=== PATIENT | female | born 1975 | race Asian ===

== ENCOUNTER 2017-06-11 07:32 | Outpatient (CLI) | payer OTHER | END 2017-06-11 21:21 | disposition home or self-care (01) | LOC: MLB 07:32 | PROVIDERS: ATTEND Obstetrics & Gynecology | DX: N83.209 Unspecified ovarian cyst, unspecified side (principal) | CPT/HCPCS: 36415; 86304 ==

== ENCOUNTER 2018-05-02 09:38 | Outpatient (CLI) | payer OTHER ==
[2018-05-02 10:27] LABS: BASOPHILS # (AUTO) 0.1 K/uL (0.00-0.22); BASOPHILS % (AUTO) 0.8 % (0.0-2.0); EOSINOPHILS # (AUTO) 0.1 K/uL (0-0.4); EOSINOPHILS % (AUTO) 1.8 % (0.0-4.0); HEMOGLOBIN 12.8 g/dL (12.0-16.0); LYMPHOCYTES # (AUTO) 1.8 K/uL (2.5-16.5); LYMPHOCYTES % (AUTO) 24.6 % (20.5-51.1); MEAN CORPUSCULAR HEMOGLOBIN 25 pg (27-31); MEAN CORPUSCULAR HGB CONC 32 g/dL (33-37); MEAN CORPUSCULAR VOLUME 79.5 fL (80-94); MONOCYTES # (AUTO) 0.3 K/uL (0.8-1.0); MONOCYTES % (AUTO) 3.7 % (1.7-9.3); NEUTROPHILS % (AUTO) 69.1 % (42.2-75.2); PLATELET COUNT (AUTO) 357 K/uL (140-450); RED BLOOD CELL COUNT(AUTO) 5.03 MIL/uL (4.20-5.40); RED CELL DISTRIBUTION WIDTH 17.7 % (11.6-13.7); WHITE BLOOD COUNT (AUTO) 7.2 K/uL (4.8-10.8)
[2018-05-02 11:13] LABS: ALBUMIN 3.6 g/dL (3.4-5.0); ANION GAP 17.7 (8-16); CARBON DIOXIDE 20.5 mmol/L (21-32); CREATININE 0.9 mg/dL (0.6-1.3); POTASSIUM 4.2 mmol/L (3.5-5.1); TOTAL BILIRUBIN 0.6 mg/dL (0.0-1.0)
[2018-05-03 08:26] LABS: PROLACTIN 8.3 ng/mL (4.8-23.3)
== END 2018-05-02 20:39 | disposition home or self-care (01) ==
LOC: MLB 09:38
PROVIDERS: ATTEND Obstetrics & Gynecology
DX: N83.201 Unspecified ovarian cyst, right side (principal); I25.10 Atherosclerotic heart disease of native coronary artery without angina pectoris
CPT/HCPCS: 36415; 76830; 80053; 84146; 85025; 86304; Q0092

== ENCOUNTER 2018-06-14 14:30 | Outpatient (CLI) | payer OTHER | END 2018-06-14 20:27 | disposition home or self-care (01) | LOC: MUS 14:30 | PROVIDERS: ATTEND Obstetrics & Gynecology | DX: D25.9 Leiomyoma of uterus, unspecified (principal); N83.202 Unspecified ovarian cyst, left side | CPT/HCPCS: 76830 ==

== ENCOUNTER 2018-06-17 06:14 | Day surgery (SDC) | payer OTHER ==
[~2018-06-17] VITALS: Ht 162.6 cm; Wt 104.3 kg
[2018-06-17 06:58] LABS: BASOPHILS # (AUTO) 0.1 K/uL (0.00-0.22); BASOPHILS % (AUTO) 1.3 % (0.0-2.0); EOSINOPHILS # (AUTO) 0.1 K/uL (0-0.4); EOSINOPHILS % (AUTO) 1.2 % (0.0-4.0); HEMATOCRIT 22.2 % (36-48); LYMPHOCYTES # (AUTO) 2.4 K/uL (2.5-16.5); LYMPHOCYTES % (AUTO) 23.1 % (20.5-51.1); MEAN CORPUSCULAR HEMOGLOBIN 22 pg (27-31); MEAN CORPUSCULAR HGB CONC 31 g/dL (33-37); MEAN CORPUSCULAR VOLUME 72.7 fL (80-94); MONOCYTES # (AUTO) 0.5 K/uL (0.8-1.0); MONOCYTES % (AUTO) 4.9 % (1.7-9.3); NEUTROPHILS # (AUTO) 7.2 K/uL (1.8-7.7); NEUTROPHILS % (AUTO) 69.5 % (42.2-75.2); PLATELET COUNT (AUTO) 431 K/uL (140-450); RED BLOOD CELL COUNT(AUTO) 3.05 MIL/uL (4.20-5.40); RED CELL DISTRIBUTION WIDTH 21.1 % (11.6-13.7); WHITE BLOOD COUNT (AUTO) 10.4 K/uL (4.8-10.8)
[2018-06-17 07:09] LABS: HEMOGLOBIN 6.8 g/dL (12.0-16.0)
[2018-06-17 07:14] LABS: ANION GAP 14.3 (8-16); CARBON DIOXIDE 23.4 mmol/L (21-32); POTASSIUM 3.7 mmol/L (3.5-5.1)
[2018-06-17 07:19] LABS: PROTHROMBIN TIME 9.3 secs (10.8-13.4)
[2018-06-17] MEDS ORDERED: BUPIVACAINE-MPF 0.5% 30 ML VIAL INJ ONE (07:30)
[2018-06-17] MEDS ORDERED: DESFLURANE 240 ML BTL INH ONE (07:56)
[2018-06-17] MEDS ORDERED: SUCCINYLCHOLINE CHLORIDE 200 MG/10 ML VIAL IV ONE (07:56)
[2018-06-17] MEDS ORDERED: ROCURONIUM 50 MG/5 ML VIAL IV ONE (07:56)
[2018-06-17] MEDS ORDERED: ONDANSETRON 4 MG/2 ML VIAL IVP ONE (07:56)
[2018-06-17] MEDS ORDERED: PROPOFOL 200 MG/20 ML VIAL IV ONE (07:56)
[2018-06-17] MEDS ORDERED: DEXAMETHASONE 4 MG/ML VIAL IVP ONE (07:56)
[2018-06-17] MEDS ORDERED: fentaNYL 0.05 MG/ML VIAL ONE (07:58)
[2018-06-17 08:02] LABS: TOTAL BILIRUBIN 0.4 mg/dL (0.0-1.0)
[2018-06-17 08:03] LABS: ALBUMIN 3.3 g/dL (3.4-5.0)
[2018-06-17] MEDS ORDERED: HYDROmorphone PFS 2 MG/ML SYR ONE (08:33)
[2018-06-17] MEDS ORDERED: ONDANSETRON 4 MG/2 ML VIAL IVP SCH (09:05)
[2018-06-17] MEDS ORDERED: IBUPROFEN 800 MG TAB PO PRN (09:30)
[2018-06-17] MEDS ORDERED: HYDROmorphone 1 MG/ML AMP IVP PRN (09:30)
[2018-06-17] MEDS ORDERED: ACETAMINOPHEN/CODEINE 300/30MG 1 TAB PO PRN (09:30)
[2018-06-17] MEDS ORDERED: MORPHINE SULFATE 4 MG/ML SYR IM/IVP PRN (09:30)
[2018-06-17] MEDS ORDERED: ONDANSETRON 4 MG/2 ML VIAL IVP PRN (13:00)
[2018-06-17 13:28] LABS: HEMATOCRIT 26.2 % (36-48); HEMOGLOBIN 8.2 g/dL (12.0-16.0); LYMPHOCYTES # (AUTO) 0.7 K/uL (2.5-16.5); LYMPHOCYTES % (AUTO) 4.9 % (20.5-51.1); MEAN CORPUSCULAR HEMOGLOBIN 24 pg (27-31); MEAN CORPUSCULAR HGB CONC 31 g/dL (33-37); MEAN CORPUSCULAR VOLUME 75.4 fL (80-94); MONOCYTES # (AUTO) 0.1 K/uL (0.8-1.0); MONOCYTES % (AUTO) 1.1 % (1.7-9.3); NEUTROPHILS # (AUTO) 12.6 K/uL (1.8-7.7); PLATELET COUNT (AUTO) 328 K/uL (140-450); RED BLOOD CELL COUNT(AUTO) 3.48 MIL/uL (4.20-5.40); RED CELL DISTRIBUTION WIDTH 22.2 % (11.6-13.7); WHITE BLOOD COUNT (AUTO) 13.4 K/uL (4.8-10.8)
== END 2018-06-17 14:50 | disposition home or self-care (01) ==
LOC: MDS 06:14 → MMU 06:35 → MDS 14:50
PROVIDERS: ATTEND Obstetrics & Gynecology
DX: N83.202 Unspecified ovarian cyst, left side (principal); N92.1 Excessive and frequent menstruation with irregular cycle; D50.0 Iron deficiency anemia secondary to blood loss (chronic); E66.01 Morbid (severe) obesity due to excess calories; Z68.41 Body mass index [BMI] 40.0-44.9, adult; Z90.49 Acquired absence of other specified parts of digestive tract
CPT/HCPCS: 36415; 36430; 58558; 58662; 80053; 82374; 84703; 85025; 85610; 85730; 86886; 86900; 86901; 86920; 88305; J0330; J1100; J1170; J2405; J2704; J3010; J3490; P9016

== ENCOUNTER 2018-07-02 15:01 | Outpatient (CLI) | payer OTHER ==
[2018-07-03 08:20] LABS: FOLLICLE STIMULATING HORMONE 3.9 mIU/mL (.); LUTEINIZING HORMONE 10.5 mIU/mL (.); PROLACTIN 11.8 ng/mL (4.8-23.3)
== END 2018-07-02 20:59 | disposition home or self-care (01) ==
LOC: MLB 15:01
PROVIDERS: ATTEND Obstetrics & Gynecology
DX: N93.0 Postcoital and contact bleeding (principal); N39.8 Other specified disorders of urinary system
CPT/HCPCS: 36415; 83001; 83002; 83516; 84146; 84443

== ENCOUNTER 2019-01-06 12:50 | Inpatient (IN) | payer OTHER ==
[~2019-01-06] VITALS: Ht 162.6 cm; Wt 104.3 kg
[2019-01-06 13:25] VITALS: BP 125/81
--- NOTE | 2019-01-06 13:30 | NUR ---
PATIENT AMBULATED TO ER BED 5.
--- NOTE | 2019-01-06 13:35 | NUR ---
PT IS A 43 Y/O FEMALE WHO PRESENTS TO THE ED C/O DIARRHEA AND EPIGASTRIC PAIN. PT STATES THAT IT STARTED YESTERDAY. PT REPORTS 10/10 ACHING EPIGASTRIC PAIN THAT DOES NOT RADIATE. PT DENIES CP, SOB, REPORTS NAUSEA/DIARRHEA, BS PRESENT IN ALL 4 QUADRANTS. PT AWAKE AND ALERT, RR EVEN/UNLABORED. PT REPOSITIONED FOR COMFORT, BED IN LOWEST POSITION. ER MD DR. VALDES NOTIFIED. WILL CONTINUE TO MONITOR. HX; DENIES RX; DENIES
--- NOTE | 2019-01-06 13:40 | NUR ---
PATIENT REPORT GIVEN TO KRISTOFER RN, TRANSFER OF CARE AT THIS TIME.
[2019-01-06] MEDS ORDERED: NACL 0.9% 1,000 ML IV SCH (14:26)
[2019-01-06] MEDS ORDERED: NACL 0.9% 1,000 ML IV ONE (14:26)
[2019-01-06] MEDS ORDERED: metroNIDAZOLE 500 MG/NS PREMIX 100 ML IV ONE (14:30)
[2019-01-06] MEDS ORDERED: KETOROLAC 30 MG/ML VIAL IVP ONE (14:30)
[2019-01-06] MEDS ORDERED: ONDANSETRON 4 MG/2 ML VIAL IVP ONE (14:30)
[2019-01-06] MEDS ORDERED: GLYCOPYRROLATE 0.2 MG/ML VIAL IV ONE (14:30)
[2019-01-06 14:55] LABS: BASOPHILS % (AUTO) 0.3 % (0.0-2.0); EOSINOPHILS % (AUTO) 0.5 % (0.0-4.0); HEMOGLOBIN 11.8 g/dL (12.0-16.0); LYMPHOCYTES # (AUTO) 0.9 K/uL (2.5-16.5); LYMPHOCYTES % (AUTO) 10.8 % (20.5-51.1); MEAN CORPUSCULAR HEMOGLOBIN 24 pg (27-31); MEAN CORPUSCULAR HGB CONC 32 g/dL (33-37); MEAN CORPUSCULAR VOLUME 74.1 fL (80-94); MONOCYTES # (AUTO) 0.6 K/uL (0.8-1.0); MONOCYTES % (AUTO) 6.4 % (1.7-9.3); NEUTROPHILS # (AUTO) 7.1 K/uL (1.8-7.7); PLATELET COUNT (AUTO) 276 K/uL (140-450); RED BLOOD CELL COUNT(AUTO) 4.99 MIL/uL (4.20-5.40); RED CELL DISTRIBUTION WIDTH 17.8 % (11.6-13.7); WHITE BLOOD COUNT (AUTO) 8.6 K/uL (4.8-10.8)
[2019-01-06 15:11] LABS: ACETONE, SERUM NEGATIVE (NEGATIVE)
[2019-01-06 15:14] LABS: ANION GAP 13.7 (8-16); CARBON DIOXIDE 22.9 mmol/L (21-32); CHLORIDE 103 mmol/L (98-107); CREATININE 0.9 mg/dL (0.6-1.3); GFR ARICAN-AMERICAN 89 mL/min (>90); GLUCOSE 106 mg/dL (74-106); POTASSIUM 3.6 mmol/L (3.5-5.1); SODIUM SERUM 136 mmol/L (136-145); UREA NITROGEN, BLOOD 15 mg/dL (7-18)
[2019-01-06 15:21] LABS: ALBUMIN 3.6 g/dL (3.4-5.0); AMYLASE 37 U/L (25-115); ASPARTATE AMINOTRANSFERASE 28 U/L (15-37); LIPASE 119 U/L (73-393); MAGNESIUM 1.9 mg/dL (1.8-2.4); TOTAL BILIRUBIN 0.4 mg/dL (0.0-1.0)
[2019-01-06] MEDS: LEVOFLOXACIN 500 MG/D5W PREMIX 100 ML IV ONE ×2 (16:03→16:14)
--- NOTE | 2019-01-06 16:33 | NUR ---
US AT BEDSIDE.
[2019-01-06] MEDS ORDERED: KETOROLAC 15 MG/ML VIAL IVP PRN (17:40)
[2019-01-06] MEDS ORDERED: ONDANSETRON 4 MG/2 ML VIAL IM/IVP PRN (17:40)
[2019-01-06] MEDS ORDERED: ACETAMINOPHEN 325 MG TAB PO PRN (17:40)
--- NOTE | 2019-01-06 17:54 | NUR ---
X RAY AT BEDSIDE
[2019-01-06 18:11] LABS: APPEARANCE,URINE CLEAR (CLEAR); BILIRUBIN,URINE NEGATIVE (NEGATIVE); BLOOD, URINE NEGATIVE (NEGATIVE); COLOR,URINE YELLOW (YELLOW); LEUKOCYTE ESTERASE ,URINE 2+ (NEGATIVE); NITRITE, URINE POSITIVE (NEGATIVE); UGLUCOSE NEGATIVE (NEGATIVE)
--- NOTE | 2019-01-06 18:22 | NUR ---
Patient will be admitted to care of DR BOYER. Admited to MS. Will go to room 115. Belongings list completed. Report to JONG DOMÍNGUEZ.
[2019-01-06 18:27] LABS: RBC,URINE 0-5 /HPF (0-5)
[2019-01-06 18:48] LABS: PROTHROMBIN TIME 9.4 secs (10.8-13.4)
[2019-01-06 18:58] LABS: PHOSPHORUS 3.1 mg/dL (2.5-4.9); THYROID STIMULATING HORMONE 0.77 uIU/mL (0.34-3.74)
--- NOTE | 2019-01-06 19:15 | NUR ---
ENDORSED PT TO PM NURSE AT BED-SIDE. PT IN STABLE CONDITION
--- NOTE | 2019-01-06 19:16 | NUR ---
RECEIVED BEDSIDE REPORT FROM DAY SHIFT NURSE SITAL RN, PT IN STABLE CONDITION, NO DISTRESS NOTED, IV TO L AC 20G INTACT, PATENT, SL, PT ON ROOM AIR, NO SOB, PT STATED HAVING TOLERABLE PAIN AT THIS MOMENT 12/15, INITIAL ASSESSMENT DONE, ALL SAFETY PRECAUTION MET, CALL LIGHT WITHIN REACH, WILL CONTINUE TO MONITOR.
[2019-01-06 19:30] VITALS: BP 120/60
[2019-01-06] MEDS: NACL 0.9% 1,000 ML IV SCH (20:45)
--- NOTE | 2019-01-06 20:45 | NUR ---
IVF STARTED ON PT, PT TOLERATED WELL, CALL LIGHT WITHIN REACH, WILL CONTINUE TO MONITOR.
[2019-01-07] VITALS: BP 112/55
[2019-01-07] MEDS ORDERED: DEXT 5% / NACL 0.45% 1,000 ML IV SCH
--- NOTE | 2019-01-07 00:20 | NUR ---
CHECKED ON PT, PT RESTING ON BED, NO DISTRESS NOTED, V/S TAKEN, WNL, CALL LIGHT WITHIN REACH, WILL CONTINUE TO MONITOR.
--- NOTE | 2019-01-07 01:56 | NUR ---
PT C/O PAIN, PAIN MEDICATION ADMINISTERED, PT TOLERATED WELL, NO DISTRESS NOTED, CALL LIGHT WITHIN REACH, WILL CONTINUE TO MONITOR.
[2019-01-07] MEDS: metroNIDAZOLE 500 MG/NS PREMIX 100 ML IV SCH ×2 (04:23→14:44)
--- NOTE | 2019-01-07 04:33 | NUR ---
DUE MEDICATION ADMINISTERED, PT TOLERATED WELL, NO DISTRESS NOTED, CALL LIGHT WITHIN REACH, WILL CONTINUE TO MONITOR.
[2019-01-07] MEDS ORDERED: KETOROLAC 15 MG/ML VIAL IVP SCH (06:30)
[2019-01-07] MEDS: NACL 0.9% 1,000 ML IV SCH ×2 (06:55→15:22)
[2019-01-07 07:21] LABS: BASOPHILS % (AUTO) 0.4 % (0.0-2.0); EOSINOPHILS # (AUTO) 0.1 K/uL (0-0.4); EOSINOPHILS % (AUTO) 2.7 % (0.0-4.0); HEMATOCRIT 33.4 % (36-48); HEMOGLOBIN 10.5 g/dL (12.0-16.0); LYMPHOCYTES # (AUTO) 1.3 K/uL (2.5-16.5); LYMPHOCYTES % (AUTO) 28.6 % (20.5-51.1); MEAN CORPUSCULAR HEMOGLOBIN 24 pg (27-31); MEAN CORPUSCULAR HGB CONC 31 g/dL (33-37); MEAN CORPUSCULAR VOLUME 75.9 fL (80-94); MONOCYTES # (AUTO) 0.4 K/uL (0.8-1.0); MONOCYTES % (AUTO) 7.7 % (1.7-9.3); NEUTROPHILS # (AUTO) 2.8 K/uL (1.8-7.7); NEUTROPHILS % (AUTO) 60.6 % (42.2-75.2); PLATELET COUNT (AUTO) 259 K/uL (140-450); RED CELL DISTRIBUTION WIDTH 18.3 % (11.6-13.7); WHITE BLOOD COUNT (AUTO) 4.7 K/uL (4.8-10.8)
--- NOTE | 2019-01-07 07:21 | NUR ---
ENDORSED PT TO DAY SHIFT NURSE LEIOT RN, FOR CONTINUOUS OF CARE. PT STABLE, NO DISTRESS NOTED, CALL LIGHT WITHIN REACH.
--- NOTE | 2019-01-07 07:22 | NUR ---
RECEIVED BEDSIDE REPORT FROM MANJU. PATIENT AAOX4. PATIENT ON ROOM AIR, NO DISTRESS NOTED. PATIENT ON MED SURGE AND STANDARD PRECAUTIONS IN PLACE. IV ON R AC 20 G INFUSING NS AT 100. IV ASYMPTOMATIC, PATENT AND INTACT. SKIN INTACT. PATIENT AMBULATORY AND CONTINENT. BED IN LOW POSITION, CALL LIGHT WITHIN REACH. WILL CONTINUE TO MONITOR.
[2019-01-07 07:24] LABS: ANION GAP 11.3 (8-16); CARBON DIOXIDE 23.9 mmol/L (21-32); CREATININE 0.9 mg/dL (0.6-1.3); POTASSIUM 4.2 mmol/L (3.5-5.1)
[2019-01-07 07:28] LABS: CHOL/HDL RATIO 3.3 (1-4.5); MAGNESIUM 1.7 mg/dL (1.8-2.4); PHOSPHORUS 2.7 mg/dL (2.5-4.9)
[2019-01-07 08:00] VITALS: BP 111/64
--- NOTE | 2019-01-07 08:05 | NUR ---
PATIENT HAS BEEN SCREENED AND CATEGORIZED MODERATE NUTRITION RISK. PATIENT WILL BE SEEN WITHIN 3-5 DAYS OF ADMISSION. 01/09/19[address]
[2019-01-07] MEDS ORDERED: LACTOBACILLUS RHAMNOSUS GG 1 EACH CAP PO SCH (09:00)
--- NOTE | 2019-01-07 09:05 | NUR ---
PATIENT BACK TO UNIT VIA WHEELCHAIR FOR SMALL BOWEL FOLLOW THROUGH.
--- NOTE | 2019-01-07 09:33 | NUR ---
ADMINISTERED SCHEDULED MEDS. PATIENT TOLERATED WELL AND WALKING AROUND ROOM. WILL CONTINUE TO MONITOR.
[2019-01-07] MEDS ORDERED: MAGNESIUM OXIDE 400 MG TAB PO SCH (10:06)
--- NOTE | 2019-01-07 11:10 | NUR ---
PATIENT SLEEPING, ON ROOM AIR, NO DISTRESS NOTED. WILL CONTINUE TO MONITOR.
[2019-01-07] MEDS ORDERED: METR250T2 PO (13:57)
[2019-01-07] MEDS ORDERED: ACET-1182 PO (13:57)
[2019-01-07] MEDS ORDERED: LACT10CA1 PO (13:59)
[2019-01-07] MEDS ORDERED: ONDA4TAB PO (14:12)
[2019-01-07] MEDS ORDERED: PSYL0.5212 PO (14:36)
--- NOTE | 2019-01-07 14:49 | NUR ---
ADMINISTERED FLAGYL ORDERED. PATIENT ON ROOM AIR NO DISTRESS NOTED. WILL CONTINUE TO MONITOR.
[2019-01-07] MEDS ORDERED: CEPH-1019 PO (14:52)
--- NOTE | 2019-01-07 15:40 | NUR ---
PATIENT STATES HAS NO PCP. I CALLED [facility] AND SPOKE WITH DIANA. SHE SAID JOCELYN, BENEFIT COORDINATOR, [phone] SHOULD BE CALLED TO GET THE PCP. I CALLED JOCELYN AND SHE SAID SHE PUT THE PATIENT'S PCP DR. CHRISTY VILLA. I INFORMED THE PATIENT AND THE DOCTOR.
[2019-01-07] MEDS ORDERED: HYDR-5123 PO (16:06)
[2019-01-07] MEDS ORDERED: LEVOFLOXACIN 750 MG/D5W PREMIX 150 ML IV SCH (17:00)
--- NOTE | 2019-01-07 17:20 | NUR ---
PROVIDED PATIENT WITH DISCHARGE INSTRUCTIONS. INSTRUCTED TO FOLLOW UP WITH PCP WITHIN 5-7 DAYS AND TO RETURN TO NEAREST ER WHEN EXPERIENCING SOB, FEVER, PAIN, ETC. PROVIDED PATIENT WITH LIST OF NEW AND CONTINUED MEDICATIONS AND TOLD PATIENT THAT PRESCRIPTIONS WERE ELECTRONICALLY SENT TO PHARMACY. PATIENT VERBALIZED UNDERSTANDING. ANSWERED ALL QUESTIONS AND CONCERNS. REMOVED WRIST BANDS AND IV, IV TIP INTACT.
== END 2019-01-07 17:20 | disposition home or self-care (01) | DRG 392 ==
LOC: MED 12:50 → MTU 17:42
PROVIDERS: ADMIT General Practice; ATTEND General Practice
DX: A08.4 Viral intestinal infection, unspecified (principal); N39.0 Urinary tract infection, site not specified; E66.9 Obesity, unspecified; K80.70 Calculus of gallbladder and bile duct without cholecystitis without obstruction; E86.0 Dehydration; K76.0 Fatty (change of) liver, not elsewhere classified; K83.8 Other specified diseases of biliary tract; K59.00 Constipation, unspecified; Z68.39 Body mass index [BMI] 39.0-39.9, adult; Z71.3 Dietary counseling and surveillance; Z90.49 Acquired absence of other specified parts of digestive tract
CPT/HCPCS: 36415; 71045; 74250; 76705; 80048; 80053; 81001; 81025; 82009; 82150; 83036; 83605; 83690; 83735; 83880; 84100; 84443; 84484; 85025; 85610; 85730; 87081; 87086; 87186; 93005; 96361; 96365; 96375; 99285; J1885; J1956; J2405; J3490; J7030; Q0092

== ENCOUNTER 2019-01-31 07:55 | Outpatient (CLI) | payer OTHER ==
[~2019-01-31 07:55] MED LIST: ACET-1182 PO; CEPH-1019 PO; HYDR-5123 PO; LACT10CA1 PO; METR250T2 PO; ONDA4TAB PO; PSYL0.5212 PO
[2019-01-31 08:29] LABS: BASOPHILS % (AUTO) 0.7 % (0.0-2.0); EOSINOPHILS # (AUTO) 0.1 K/uL (0-0.4); EOSINOPHILS % (AUTO) 2.6 % (0.0-4.0); HEMATOCRIT 37.7 % (36-48); HEMOGLOBIN 12.1 g/dL (12.0-16.0); LYMPHOCYTES # (AUTO) 1.5 K/uL (2.5-16.5); LYMPHOCYTES % (AUTO) 32.2 % (20.5-51.1); MEAN CORPUSCULAR HEMOGLOBIN 24 pg (27-31); MEAN CORPUSCULAR HGB CONC 32 g/dL (33-37); MEAN CORPUSCULAR VOLUME 75.6 fL (80-94); MONOCYTES # (AUTO) 0.2 K/uL (0.8-1.0); MONOCYTES % (AUTO) 5.3 % (1.7-9.3); NEUTROPHILS # (AUTO) 2.7 K/uL (1.8-7.7); NEUTROPHILS % (AUTO) 59.2 % (42.2-75.2); PLATELET COUNT (AUTO) 338 K/uL (140-450); RED BLOOD CELL COUNT(AUTO) 4.98 MIL/uL (4.20-5.40); RED CELL DISTRIBUTION WIDTH 16.6 % (11.6-13.7); WHITE BLOOD COUNT (AUTO) 4.5 K/uL (4.8-10.8)
[2019-01-31 08:53] LABS: ALBUMIN 3.8 g/dL (3.4-5.0); ANION GAP 16.8 (8-16); CARBON DIOXIDE 22.3 mmol/L (21-32); CHOL/HDL RATIO 3.9 (1-4.5); CREATININE 0.8 mg/dL (0.6-1.3); POTASSIUM 4.1 mmol/L (3.5-5.1); THYROID STIMULATING HORMONE 2.9 uIU/mL (0.34-3.74); TOTAL BILIRUBIN 0.5 mg/dL (0.0-1.0)
== END 2019-01-31 18:59 | disposition home or self-care (01) ==
LOC: MLB 07:55
PROVIDERS: ATTEND Family Medicine
DX: E78.5 Hyperlipidemia, unspecified (principal); R63.5 Abnormal weight gain
CPT/HCPCS: 36415; 80053; 84443; 85025

== ENCOUNTER 2019-04-05 08:24 | Emergency (ER) | payer OTHER ==
[~2019-04-05] VITALS: Ht 162.6 cm; Wt 99.8 kg
[2019-04-05 08:28] VITALS: BP 140/94
--- NOTE | 2019-04-05 08:30 | NUR ---
PT AMBULATED TO BED 6 AT THIS TIME.
--- NOTE | 2019-04-05 08:52 | NUR ---
PATIENT PRESENTS TO ED WITH C/O SORE THROAT AND NAUSEA X2 DAYS . PT REPORTS PAIN 5/10 AT THIS TIME. +COUGH. DENIES FEVER; AFEBRILE. VSS.
[2019-04-05 08:55] VITALS: BP 140/94
--- NOTE | 2019-04-05 08:56 | NUR ---
Patient discharged with v/s stable. Written and verbal after care instructions given and explained. Patient alert, oriented and verbalized understanding of instructions. Ambulatory with steady gait. All questions addressed prior to discharge. ID band removed. Patient advised to follow up with PMD. Rx of Promethazine and Azithromycin given. Patient educated on indication of medication including possible reaction and side effects. Opportunity to ask questions provided and answered.
== END 2019-04-05 08:56 | disposition home or self-care (01) ==
LOC: MED 08:24
DX: J02.9 Acute pharyngitis, unspecified (principal); R03.0 Elevated blood-pressure reading, without diagnosis of hypertension; Z79.899 Other long term (current) drug therapy
CPT/HCPCS: 99283

== ENCOUNTER 2020-02-06 12:17 | Outpatient (CLI) | payer OTHER ==
[2020-02-06 13:00] LABS: ALBUMIN 3.7 g/dL (3.4-5.0); ANION GAP 15.4 (8-16); CARBON DIOXIDE 23.9 mmol/L (21-32); CHOL/HDL RATIO 5.3 (1-4.5); CREATININE 0.8 mg/dL (0.6-1.3); POTASSIUM 4.3 mmol/L (3.5-5.1); THYROID STIMULATING HORMONE 2.8 uIU/mL (0.34-3.74); TOTAL BILIRUBIN 0.3 mg/dL (0.0-1.0)
[2020-02-06 13:06] LABS: BASOPHILS # (AUTO) 0.1 K/uL (0.00-0.22); BASOPHILS % (AUTO) 1.2 % (0.0-2.0); EOSINOPHILS # (AUTO) 0.1 K/uL (0-0.4); EOSINOPHILS % (AUTO) 1.3 % (0.0-4.0); HEMOGLOBIN 11.1 g/dL (12.0-16.0); LYMPHOCYTES # (AUTO) 1.7 K/uL (2.5-16.5); LYMPHOCYTES % (AUTO) 26.4 % (20.5-51.1); MEAN CORPUSCULAR HEMOGLOBIN 22 pg (27-31); MEAN CORPUSCULAR HGB CONC 31 g/dL (33-37); MONOCYTES # (AUTO) 0.3 K/uL (0.8-1.0); MONOCYTES % (AUTO) 4.7 % (1.7-9.3); NEUTROPHILS # (AUTO) 4.3 K/uL (1.8-7.7); NEUTROPHILS % (AUTO) 66.4 % (42.2-75.2); PLATELET COUNT (AUTO) 348 K/uL (140-450); RED BLOOD CELL COUNT(AUTO) 5.15 MIL/uL (4.20-5.40); RED CELL DISTRIBUTION WIDTH 22.2 % (11.6-13.7); WHITE BLOOD COUNT (AUTO) 6.5 K/uL (4.8-10.8)
[2020-02-06 13:15] LABS: APPEARANCE,URINE CLEAR (CLEAR); BILIRUBIN,URINE NEGATIVE (NEGATIVE); BLOOD, URINE 3+ (NEGATIVE); COLOR,URINE YELLOW (YELLOW); LEUKOCYTE ESTERASE ,URINE NEGATIVE (NEGATIVE); NITRITE, URINE NEGATIVE (NEGATIVE); UGLUCOSE NEGATIVE (NEGATIVE)
[2020-02-06 13:57] LABS: RBC,URINE 11-20 (MOD) /HPF (0-5)
[2020-02-06 13:58] LABS: WBC,URINE NONE SEEN /HPF (0-5)
== END 2020-02-06 21:46 | disposition home or self-care (01) ==
LOC: MLB 12:17
PROVIDERS: ATTEND Family Medicine
DX: E78.2 Mixed hyperlipidemia (principal)
CPT/HCPCS: 36415; 80053; 81001; 82306; 83036; 84443; 85025; 86702; 87086